=== PATIENT | female | born 1990 | race Caucasian/White ===

== ENCOUNTER 2024-01-27 14:06 | Outpatient (CLI) | payer MEDICAID, SELFPAY ==
--- OUTSIDE RECORDS SUMMARY | 2024-01-27 14:08 | XMS_ITS | Clinical Summary ---
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 Phone Pcp, No Primary Care Provider Unavailabl e Allergies No known active allergies Medications No known medications Active Problems No known active problems Immunizations Name Administration Dates Next Due Td (Age >=7 Years) 01/08/2009 Family History Medical History Relation Name Comments Hypertension Father Cancer Maternal Grandfather lung Cancer Maternal Grandmother unsure Relation Name Status Comments Father Maternal Grandfather Maternal Grandmother Social History Tobacco Use Types Packs/Day Years Used Date Smoking Tobacco: Never Smokeless Tobacco: Never Alcohol Use Standard Drinks/Week Comments Yes 0.8 (1 standard drink = 0.6 oz p ure alcohol) Sex and Gender Information Value Date Recorded Sex Assigned at Not on file Gender Identity Not on file Sexual Orientation Not on file Obstetrics History Last Filed Vital Signs Vital Sign Reading Time Taken Comments Blood Pressure 88/63 10/04/2023 11:32 AM CDT Pulse 98 10/04/2023 11:32 AM CDT Temperature 36.8 ??C (98.3 ??F) 03/02/2013 11:[address] Respiratory Rate 14 10/04/2023 11:32 AM CDT Oxygen Saturation 97% 10/04/2023 11:32 AM CDT Inhaled Oxygen Concentration - - Weight 60.3 kg (133 lb) 10/04/2023 11:32 AM CDT Height 165.1 cm (5' 5) 03/02/2013 11:29 AM RELIGION INSTRUCTOR Body Mass Index - - Plan of Treatment Health Maintenance Due Date Last Done Comments Tdap 01/24/1999 Depression screening for age 12+ 2000 HIV for age 15-65 01/24/2003 BMI (ht and wt on same day) for age 18+ 01/24/2006 Hepatitis C screening for age 18-79 01/24/2006 Tetanus booster 01/08/2019 01/08/2009 Pap test for age 21-65 05/14/2023 , 05/14/2020, 11/12/2016, Additional history exists COVID-19 vaccine series (2023- season) 2023 12/16/2020, 11/18/2020 Influenza for age 9-49 11/29/2023 Pneumococcal series for age 6-64 Aged Out No longer eligible based on patient's age to complete this topic Procedures Procedure Name Priority Date/Time Associated Diagnosis Comments [facility] THIN PREP PAP SCREEN IMAGED Routine 05/14/2020 11:15 AM RELIGION INSTRUCTOR from Last 3 Months or Most Recently Relevant to Health Maintenance Results * [facility] THIN PREP PAP SCREEN IMAGED (05/14/2020 11:15 AM RELIGION INSTRUCTOR) Case Report Gynecologic Cytology Report ? Case: [id number] ? Authorizing Provider: ??Kassidy Presley CNM ? Collected: ? 05/14/2020 1115 ? Ordering Location: ? [facility] ?Received: ?05/14/2020 1714 ? First Screen: ?Beverley Mann ? Specimen: ?[facility] ThinPrep Vial Screening, Cervical/Vaginal ? 05/22/2020 1:59 PM RELIGION INSTRUCTOR [facility] INTERPRETATION/ RESULT NEGATIVE FOR INTRAEPITHELIAL LESION OR MALIGNANCY (NIL) (none) 05/22/2020 1:59 PM RELIGION INSTRUCTOR [facility] IMEN ADEQUACY Satisfactory for evaluation Endocervical component present 05/22/2020 1:59 PM RELIGION INSTRUCTOR [facility] HPV REQUEST HPV and PAP 05/22/2020 1:59 PM RELIGION INSTRUCTOR [facility] Menstrual Status 05/22/2020 1:59 PM RELIGION INSTRUCTOR [facility] Additional Information 05/22/2020 1:59 PM RELIGION INSTRUCTOR [facility] Comment: Interpreted at [facility] [employer] [facility] - [address], [place] [address] Automated Review Successful 05/22/2020 1:59 PM RELIGION INSTRUCTOR [facility] Comment:Specimen processed s uccessfully by automated television tube inspector device, ThinPrep Imaging System, [employer] ANCILLARY TESTING [facility]OR [facility] HPV Ordered, Please see separate report 05/22/2020 1:59 PM RELIGION INSTRUCTOR [facility] Note The pap test is a screening technique, not a diagnostic procedure. It is used primarily to screen for squamous cancers and precursor lesions. Published studies have shown that it is subject to both false negative and false positive results. The pap test should not be used as the sole means to diagnose or exclude pre-malignant and malignant lesions. 05/22/2020 1:59 PM RELIGION INSTRUCTOR [facility] Other (Cervical/Vagina l) 05/14/2020 11:15 AM RELIGION INSTRUCTOR 05/14/2020 5:14 PM RELIGION INSTRUCTOR Kassidy Presley CNM PATHOLOGY/CYTOLOGY [facility] [address] [place] [address], [place] from Last 3 Months or Most Recently Relevant to Health Maintenance Care Teams Wood Processing Worker Relationship Specialty Start Date End Date Pcp, No . PCP - General 07/13/15
[2024-01-27 19:04] LABS: Chlamydia DNA Amplified* NOT DETECTED (No Detected); GC DNA Amplified* NOT DETECTED (No Detected)
== END 2024-01-27 14:07 | disposition home or self-care (01) ==
PROVIDERS: PCP Physician Assistant Medical; Visit Provider Registered Nurse
DX: Z34.91 Encounter for supervision of normal pregnancy, unspecified, first trimester (principal); Z3A.08 8 weeks gestation of pregnancy
CPT/HCPCS: 76817; 86592; 86703; 86704; 86706; 86762; 86787; 86803; 86850; 86900; 86901; 87086; 87340; 87491; 87591

== ENCOUNTER 2024-04-06 09:29 | Outpatient (CLI) | payer OTHER, SELFPAY | END 2024-04-06 09:30 | disposition home or self-care (01) | PROVIDERS: PCP Physician Assistant Medical; Visit Provider Registered Nurse | DX: O09.522 Supervision of elderly multigravida, second trimester (principal); Z87.51 Personal history of pre-term labor; Z3A.18 18 weeks gestation of pregnancy | CPT/HCPCS: 76811; 76817 ==

== ENCOUNTER 2024-04-20 10:45 | Outpatient (CLI) | payer OTHER, SELFPAY ==
--- NOTE | 2024-04-20 10:45 | CRLHL7_ITS ---
For Patients: As a result of the Century Cures Act, medical imaging exams and procedure reports are released immediately into your electronic medical record. You may view this report before your referring provider. If you have questions, please contact your health care provider. OBSTETRICAL ULTRASOUND ??? FOLLOW-UP INDICATION: History of labor, cervix check and low-lying placenta. KATIE by LMP: 09/07/2024 Gestational age: 20 weeks 0 days GESTATION: Single COMPARISON: 04/06/2024 TECHNIQUE: Realtime jean-baptiste-scale imaging of the fetus was performed transabdominal and transvaginal. FINDINGS: Cervix: Visualized, 3.3 cm positioning: Breech Amniotic fluid: 4.8 cm SDP Placenta technique: Transabdominal Placenta position: Anterior heart rate: 154 bpm COMMENTS: Cervix appears long and closed. Low-lying placenta appears to have resolved, 4.1 cm away from cervical os. IMPRESSION: 1. The cervix is closed and measures 3.3 cm with transvaginal technique. 2. Anterior placenta is located 4.1 cm away from the internal cervical os. No previa. JOHN NEGRON M.D. Diagnostic Radiologist [email or web address] Transcribed: 1:[address]/Dictated by: John Negron MD @ 04/20/2024 1:24:00 PM (Electronically Signed)
== END 2024-04-20 10:46 | disposition home or self-care (01) ==
LOC: US 10:45
PROVIDERS: PCP Physician Assistant Medical; Visit Provider Obstetrics & Gynecology
DX: Z34.92 Encounter for supervision of normal pregnancy, unspecified, second trimester (principal); Z87.51 Personal history of pre-term labor; Z3A.20 20 weeks gestation of pregnancy
CPT/HCPCS: 76816; 76817

== ENCOUNTER 2024-06-15 09:18 | Outpatient (CLI) | payer OTHER, SELFPAY ==
--- NOTE | 2024-06-15 09:30 | CRLHL7_ITS ---
For Patients: As a result of the Century Cures Act, medical imaging exams and procedure reports are released immediately into your electronic medical record. You may view this report before your referring provider. If you have questions, please contact your health care provider. OB ULTRASOUND KATIE by LMP/US: 09/07/2024. GA: 28 w, 0 d. Single. Comparison: 05/04/2024, 04/20/2024, 04/06/2024. INDICATION: Ulcerative colitis, growth. TECHNIQUE: Real time grayscale imaging of the fetus was performed. Transabdominal. CERVIX: Not visualized. POSITIONING: Vertex. AMNIOTIC FLUID: 6.2 cm. SDP (N: greater than 2 x 1 cm) PLACENTA: Technique: Transabdominal. PLACENTA POSITION: Posterior, right wall. DOPPLER: heart rate: 149 bpm. BIOMETRY: BPD: 7.3 cm. 29 w, 1 d, 75 percent. HC: 26.6 cm. 29 w, 0 d, 49 percent. AC: 25.5 cm. 29 w, 5 d, 88 percent. FL: 5.4 cm. 28 w, 3 d, 47 percent. FL/AC ratio: 21.02 percent. HC/AC ratio: 1.04. EFW: 1346 g. Weight: 2 lbs, 15 oz. age by this US: 29 w, 1 d. KATIE by this US: 08/30/2024. Percentile by KATIE: 81 percent. IMPRESSION: 1. Sonographic gestational age 29 weeks 1 day and sonographic due date 08/30/2024. Sonographic age is 8 days ahead of the clinical age. 2. Estimated weight 81st percentile. Abdominal circumference 88th percentile. John Hanson M.D. Diagnostic Radiologist [email or web address] mercado/Dictated by: John Hanson MD @ 06/15/2024 11:00:00 AM (Electronically Signed)
== END 2024-06-15 09:19 | disposition home or self-care (01) ==
LOC: US 09:18
PROVIDERS: PCP Physician Assistant Medical; Visit Provider Obstetrics & Gynecology
DX: O26.893 Other specified pregnancy related conditions, third trimester (principal); K51.90 Ulcerative colitis, unspecified, without complications; Z3A.28 28 weeks gestation of pregnancy
CPT/HCPCS: 76816

== ENCOUNTER 2024-06-15 09:18 | Outpatient (CLI) | payer OTHER, SELFPAY | END 2024-06-15 09:19 | disposition home or self-care (01) | LOC: NFLDREF 06-17 04:53 | PROVIDERS: PCP Physician Assistant Medical; Referring Provider Physician Assistant Medical; Visit Provider Obstetrics & Gynecology | DX: Z34.93 Encounter for supervision of normal pregnancy, unspecified, third trimester (principal); Z3A.28 28 weeks gestation of pregnancy | CPT/HCPCS: 86592 ==

== ENCOUNTER 2024-06-29 09:16 | Outpatient (CLI) | payer OTHER, SELFPAY | END 2024-06-29 09:17 | disposition home or self-care (01) | PROVIDERS: PCP Physician Assistant Medical; Visit Provider Obstetrics & Gynecology | DX: R55 Syncope and collapse (principal) | CPT/HCPCS: 80048; 84443 ==

== ENCOUNTER 2024-07-27 09:00 | Outpatient (CLI) | payer OTHER, SELFPAY ==
--- NOTE | 2024-07-27 09:15 | CRLHL7_ITS ---
For Patients: As a result of the Century Cures Act, medical imaging exams and procedure reports are released immediately into your electronic medical record. You may view this report before your referring provider. If you have questions, please contact your health care provider. OB ULTRASOUND FOLLOW-UP GROWTH, 07/27/2024 CLINICAL HISTORY: Ulcerative colitis. COMPARISON: 06/15/2024, 05/04/2024. TECHNIQUE: Real time jean-baptiste scale imaging of the fetus was performed transabdominally. FINDINGS: KATIE by LMP: 09/04/2024. GA: 34 weeks 3 days. Gestation: Single. Cervix: Not visualized. Positioning: Vertex. Amniotic Fluid: 5.7 cm SDP. Placenta: Technique: TA. Placenta Position: Posterior. Dopplers: Heart Rate: 163 bpm. BIOMETRY: BPD: 8.4 cm, 34 weeks 0 days. 35% HC: 31.4 cm, 35 weeks 1 day. 32% AC: 32.5 cm, 36 weeks 3 days. 95% FL: 6.7 cm, 34 weeks 4 days. 43% EFW: 2698 grams, 5 lb 15 oz. Age by this US: 35 weeks 0 days. KATIE by this US: 08/31/2024. Percentile by KATIE: 77% IMPRESSION: 1. Sonographic gestational age 35 weeks 0 days and sonographic due date 08/31/2024. Good correlation with dates. Normal interval growth. 2. Estimated weight 77th percentile. Abdominal circumference 95th percentile. John Hanson M.D. Diagnostic Radiologist [email or web address] Transcribed: 2:36 pm DW/Dictated by: John Hanson MD @ 07/27/2024 2:26:00 PM (Electronically Signed)
== END 2024-07-27 09:01 | disposition home or self-care (01) ==
LOC: US 09:00
PROVIDERS: PCP Physician Assistant Medical; Visit Provider Obstetrics & Gynecology
DX: O26.893 Other specified pregnancy related conditions, third trimester (principal); K51.90 Ulcerative colitis, unspecified, without complications; Z3A.34 34 weeks gestation of pregnancy
CPT/HCPCS: 76816

== ENCOUNTER 2024-08-10 09:13 | Outpatient (CLI) | payer OTHER, SELFPAY ==
[2024-08-11 11:35] LABS: Strep B DNA Probe Negative (Negative)
[2024-08-11 11:41] LABS: Strep B Susceptibility Needed? No
== END 2024-08-10 09:14 | disposition home or self-care (01) ==
LOC: NFLDREF 09:14
PROVIDERS: PCP Physician Assistant Medical; Visit Provider Obstetrics & Gynecology
DX: Z34.83 Encounter for supervision of other normal pregnancy, third trimester (principal)
CPT/HCPCS: 87081; 87653

== ENCOUNTER 2024-08-29 07:16 | Inpatient (IN) | payer OTHER, SELFPAY ==
[2024-08-29] VITALS (64 sets, daily range): BP systolic 106–151; BP diastolic 55–121; PULSE 51–118; RESP 12–18; TEMP 36.5–37; O2SAT 96–100; BMI 27.3
--- NOTE | 2024-08-29 07:59 | P.LDBA_ITS ---
Subjective History of Present Illness Time Seen by Provider: 07:55 Date Seen: 08/29/24 Narrative: Patient is being admitted to Labor and Delivery for induction of labor. She is a 34 year old at 39 1/7 weeks gestation. Her full history and physical was dictated by Sneha Silva CNM on 08/17/2024. Please see this for details. She feels well this morning. She denies contractions, unusual vaginal discharge, vaginal bleeding or leakage of fluid. Specific Issues/Plans G 2 P 0101 (KATIE by US per MFM) :Pb H&P done by Eder Silva CNM on 08/17/24 #Advanced maternal age * NIPT: Low risk, boy! * Level 2 ultrasound see below * Growth ultrasound at 28 weeks and 34 weeks # History of delivery. PPROM at 34 weeks 2 days. Induced at 34 weeks. Patient will consult with perinatology at time of level 2 ultrasound # Ulcerative colitis. Has not seen Gastroenterology since her last . Currently stable. Open to a referral to GI. * Will place a referral to Gastroenterology. She prefers to not go to [place]. [facility] 02/10/24: defer colonoscopy d/t ; checking CBC, CMP, CRP, fecal calprotectin; avoid stress and foods that trigger diarrhea; f/u w/ [facility] in 4 months. * Recommend daily low-dose aspirin at 12 weeks * Avoid NSAIDs post delivery, delivery in 39th week recommended #Presyncopal symptoms at 30 weeks visit - Deferred Tdap due to feeling unwell - Normal CBC, BMP, TSH on 06/29, unremarkable EKG [x] Zio patch x3 days - normal sinus vs supraventricular ectopy noted during events. Nothing further required. Imaging * 1st OB US: 3.3 x 1.0 x 2.9 cm [place] in the left uterus.2.0 x 1.8 x 2.4 cm complex area in the lower uterine segment may represent a uterine fibroid or other mass. Recommend continued attention on follow-up. * FU US: 1.6 x 1.2 x 1.2 centimeter left ovarian presumed hemorrhagic cyst. Consider follow-up ultrasound in 6-12 weeks.Patient to call w/ any bleeding * Level 2 ultrasound: 04/06/2024 no anomalies, EFW 90%, AC 89%, MVP 3.65 cm, posterior right lateral and low lying placenta 14.6 mm from internal cervical os. Recommend transvaginal assessment of cervical length every 2 weeks until 22-23 weeks, increasing to weekly if cervical length between 25-29 mm and recommend that these be scheduled at [facility] or [facility]. If cervical length within normal limits at 22-23 weeks, can then plan to discontinue cervical length screening at that time. If cervical length < 25 mm at < 24 weeks, recommend either vaginal progesterone vs cerclage for recurrent PTB risk reduction. * 04/20/24: The cervix is closed and measures 3.3 cm with transvaginal technique. .Anterior placenta is located 4.1 cm away from the internal cervical os. No previa. * [facility] follow-up on 05/04/2024: Single deepest pocket of amniotic fluid: 5.9 cm, cephalic, AC: 74th percentile, EFW 61 percentile. Single dual at 22 weeks 3 days. Normal anatomy. Normal growth. Transvaginal imaging of the cervix appear long and closed measuring 41 mm. dating: We discussed that based on short menstrual cycle lengths of 24 days, recommend using a KATIE of 09/04/2024, which is based on early ultrasound. Using this stating, growth parameters are normal. Recommendations/plan: Recommend using a KATIE 09/04/2024. Growth ultrasound at 28 and 34 weeks given ulcerative colitis, which we pursue will be done with [facility]. Delivery at 39 weeks given ulcerative colitis. * 06/15/2024: Vertex, SDP: 6.2cm, EFW: 81%, AC: 88%. Normal growth. * 07/27: EFW is 2698g at the 77%ile, AC 95%ile, cephalic, MVP of 5.7cm. Flu: 01/27/2024 Covid: Recommended booster. Patient declines. Tdap: 07/13/24 RSV: NA 32 week mental health: 07/13/24 Last pap: [Only high-risk abnormal pap results in problem list] OB - Problem Based A/P Additional Plan (1) Advanced maternal age (AMA) in : Status: Acute (2) Ulcerative colitis: Status: Chronic Delivery/Labor/Induction Plan Plan: induction Induction method: per pitocin protocol OB Result Labs Blood Type: O (+) positive Rubella: immune RPR/VDLR: nonreactive GBS Status: negative HBsAG: negative OB Exam Physical Exam Vital signs: Temp Pulse Resp BP Pulse Ox 97.7 F 80 12 126/64 96 08/29/24 07:37 08/29/24 07:37 08/29/24 07:37 08/29/24 07:37 08/29/24 07:34 Detailed Labor and Delivery Exam Patient Gravid: yes Dilation (cm): 2 Effacement (%): 70 Cervix position: mid Consistency: soft Cervical ripeness score: 7 Contraction Frequency: 0 Tachysystole: No Fetus (Single) Station: -2 Heart Rate Baseline: 145 Monitor Accelerations: Absent Monitor Decelerations: None Alf Variability: Moderate (6-25)
[2024-08-29 08:01] LABS: Basophils Absolute Auto 0.03 K/uL (0.00-0.30); Basophils Percent Auto 0.3 % (0.0-3.0); Hematocrit 36.8 % (33.0-51.0); Hemoglobin* 12.3 gm/dL (12.0-16.0); Immature Granulocytes Abs Auto 0.03 K/uL (0.00-0.30); Immature Granulocytes Pct Auto 0.3 %; Lymphocytes Percent Auto 19.5 % (20-44); Mean Corpuscular HGB Conc 33 gm/dL (32-36); Mean Corpuscular Hemoglobin 30 pg (26-34); Mean Corpuscular Volume 89 fL (80-100); Monocytes Percent Auto 6.3 % (0.0-11.0); Neutrophils Percent Auto 72.6 % (42.0-72.0); Platelet Count* 187 K/uL (140-440); Red Blood Count 4.15 m/uL (4.00-5.20); White Blood Count* 10.43 K/uL (4.50-11.00)
[2024-08-29 08:02] LABS: Slide Review Reflex No
[2024-08-29] MEDS: LACTATED RINGERS 1000 ML 1,000 ML 125 ML IV (08:36)
[2024-08-29] MEDS: OXYTOCIN 30 unit/500 ML in NS 30 UNIT/500 ML BAG IVPB (08:37)
--- NOTE | 2024-08-29 13:37 | P.OBPN_ITS ---
Subjective Time Seen by Provider: 13:30 Date Seen: 08/29/24 Narrative: The patient feels well. Contractions are frequent but not painful. Objective Vital Signs: Last Vital Signs Temp 98.2 F 08/29/24 13:12 Pulse 78 08/29/24 13:12 Resp 16 08/29/24 13:12 BP 135/74 08/29/24 13:12 Pulse Ox 96 08/29/24 13:12 Pelvic Exam Dilation (cm): 4 Effacement (%): 80 Station: -2 Contractions Monitor mode: External Contraction Frequency: q2-3 min Contraction pattern: Regular Contraction intensity: Mild Pitocin Rate (mU/min): 2 Assessment Assessment: induction ongoing Station: -2 Amniotic Membrane Status: AROM (clear fluid noted) Heart Rate Baseline: 145 Care Home Variability: Moderate (6-25) Monitor Accelerations: Present Monitor Decelerations: None Plan Plan: AROM performed. Titrate pitocin as needed Epidural prn. Anticipate vaginal delivery.
[2024-08-29] MEDS: LACTATED RINGERS 1000 ML 1,000 ML 1125 ML IV (15:50)
[2024-08-29] MEDS: ROPIVACAINE 0.2% 100 ml 100 ML 12 MG EPIDURAL (16:42)
[2024-08-29] MEDS: BUPIVACAINE 0.25% PF 10 ML 10 ML ML EPIDURAL (16:42)
--- NOTE | 2024-08-29 16:51 | P.ANBPRC_ITS ---
PFSH PFS Surgical History History of vaginal delivery (11/10/20) Family History Brother Crohn's disease Mother Breast cancer, Onset Age: 52 Father Diabetes High blood pressure Maternal Grandfather Lung cancer Maternal Grandmother Lung cancer Grandmother Heart disease Grandfather Heart disease Social History What is your current living situation?: I presently have a place to live Problems where you live: no known problems In the past 12 months, utilities in danger of being shut off: no In past 12 months, lack of transportation kept you from medical appts, meetings, work, or getting things needed for daily living: no In the past 12 mos, have been you worried that your food would run out before you had money to buy more?: never true In the past 12 mos, the food you bought just didn't last and you didn't have money to buy more?: never true Smoking Status: Never smoker How often does anyone, including family, friends and others, physically hurt you : never How often does anyone, including family, friends and others, insult or talk down to you: never How often does anyone, including family, friends and others, threaten you with harm: never How often does anyone, including family, friends and others, scream or curse at you: never Meds Home Medications and Allergies Home Medications ?Medication ?Instructions ?Recorded ?Confirmed ?Type cholecalciferol (vitamin D3) 10 10 mcg PO QDAY 4 08/29/24 History mcg (400 unit) capsule docosahexaenoic acid 200 mg 200 mg PO DAILY 01/27/24 0 08/29/24 History capsule ( DHA) Allergies Allergy/AdvReac Type Severity Reaction Status Date / Time No Known Drug Allergies Allergy Verified 08/29/24 07:56 Results Labs Labs: Laboratory Results - last 24 hr 08/29/24 07:50 WBC 10.43 RBC 4.15 Hgb 12.3 Hct 36.8 MCV 89 MCH 30 MCHC 33 RDW Coeff of Darling 13.0 Plt Count 187 Neut % (Auto) 72.6 H Lymph % (Auto) 19.5 L [place] % (Auto) 6.3 Eos % (Auto) 1.0 Baso % (Auto) 0.3 Neut # (Auto) 7.60 H Lymph # (Auto) 2.00 [place] # (Auto) 0.70 Eos # (Auto) 0.10 Baso # (Auto) 0.03 Abs Immat Gran (auto) 0.03 Imm/Tot Granulo (auto) 0.3 Blood Type O Positive Antibody Screen NEGATIVE Vital Signs Vital Signs: Last Vital Signs Temp 97.7 F 08/29/24 15:28 Pulse 77 08/29/24 16:48 Resp 16 08/29/24 15:28 BP 133/59 L 08/29/24 16:48 Pulse Ox 100 08/29/24 16:50 Weight: 74.707 kg Height: 165.1 cm Anesthesia Procedures Epidural Insertion Patient Location: OB Start Time: 16:00 Stop Time: 16:50 Start Date: 08/29/24 Stop Date: 08/29/24 Reason for Block: procedure for pain Patient Position: sitting Performed By: Glenn Obrien Preanesthetic Checklist: IV checked, risks and benefits discussed, surgical consent, monitors and equipment checked, pre-op evaluation, timeout performed and anesthesia consent Prep: chlorhexidine gluconate Monitoring: blood pressure monitoring, continuous pulse oximetry and heart rate Approach: midline Vertebral Space: lumbar (1-5) Epidural Technique: YUSUF saline Needle Type: Tuohy needle Injection Technique: continuous catheter Needle gauge: 17 Needle Length (cm): 10 cm Needle Insertion Depth (cm): 6 Catheter Gauge: 19 Catheter Type: multi-orifice Catheter at skin depth (cm): 12 Test Dose Result: negative and lidocaine 1.5% with epinephrine 1 to 200,000
[2024-08-29 17:55] LABS: Hematocrit 39.5 % (33.0-51.0); Hemoglobin* 13.1 gm/dL (12.0-16.0); Mean Corpuscular HGB Conc 33 gm/dL (32-36); Mean Corpuscular Hemoglobin 30 pg (26-34); Mean Corpuscular Volume 89 fL (80-100); Platelet Count* 196 K/uL (140-440); Red Blood Count 4.43 m/uL (4.00-5.20); White Blood Count* 17.03 K/uL (4.50-11.00)
[2024-08-29 17:56] LABS: Slide Review Reflex No
[2024-08-29 18:10] LABS: Alanine Aminotransferase* 17 U/L (4-35); Aspartate Amino Transferase* 32 U/L (12-35); Blood Urea Nitrogen* 15 mg/dL (5-24); Creatinine* 0.8 mg/dL (0.5-1.5); Est. Creatinine Clearance* 87.48; Estimated Glomerular Filt Rate 98 ml/min
[2024-08-29] MEDS: OXYTOCIN 30 unit/500 ML in NS 30 UNIT/500 ML BAG 303 UNIT IVPB (18:23)
[2024-08-29 18:32] LABS: Creatinine Urine < 3.2 mg/dL
[2024-08-29 18:38] LABS: Total Protein Urine 290 mg/dL
--- NOTE | 2024-08-29 18:53 | W.PM.OBVAGDE ---
OB Procedure Vag Delivery Mother Details Mother Details: The patient is a 34 year-old, 2, Para 1, admitted on 08/29/24 at 39.1 weeks gestation for induction of labor. : 2 Para: 1 Weeks Gestation: 39.1 Admission Date: 08/29/24 Additional Details Amniotic Membrane Status: intact Amniotic Membrane Rupture Date: 08/29/24 Amniotic Membrane Rupture Time: 13:33 Amniotic Membrane Fluid Description: Clear Analgesia/Anesthesia Type: Epidural Waterbirth: No Pitcoin: Yes Intrapartal Events: Labor Induction Induction Method: per pitocin protocol Delivery augmentation: rupture of membranes Labor Onset: 17:05 Complete: 18:09 Pushin:10 Heart: heart tones during second stage were 145 bpm with good variability and variable decelerations to 90s, category 2. Delivery Details Delivery Date: 08/29/24 Delivery Time: 18:21 Route of delivery: Gender: Male Infant Viability: Alive; Heart Rate Present Position at Delivery: OA (with nuchal cord x1, reduced over the head prior to delivery of the shoulders.) Delivery Details: Delivered via spontaneous vaginal delivery. was placed on maternal abdomen.? Cord was clamped and cut after a 30-60 second delay. Nose and mouth were bulb suctioned.? Infant weight pending. Brisk uterine bleeding noted with delivery of placenta, as well as brisk bleeding from a lacerated perineal vessel. Additional Details Shoulder Dystocia: No Placenta Delivery Time: 18:25 Placental Delivery Description: Spontaneous Delivery repair: Chromic (2-0 vicryl for perineal vessel ligation and reapproximation of the deeper tissues, 3-0 chromic for the 2nd degree layered repair) Procedure Done: Global Blood Loss: 1,000 Laceration: Perineal - 2nd Degree Episiotomy Description: None Blood Loss Measurement Type: QBL Bakri Used: No Sponge/Need Count Correct: Yes Cord Vessel Description: 3 Vessels Event Summary Status: Mother and were stable after delivery. Disposition: floor
--- NOTE | 2024-08-29 23:35 | PM.ANPOST ---
Post Anesthesia Note Post Anesthesia Note Patient seen: Inpatient Respiratory Status: adequate Cardiovascular Status: adequate Mental Status: baseline Pain: adequate Temp: baseline Anesthetic awareness: N/A Complications: none Follow care: none
[2024-08-30] VITALS (7 sets, daily range): BP systolic 98–130; BP diastolic 66–81; PULSE 77–102; RESP 16–18; TEMP 36.6–36.8; O2SAT 97–98
[2024-08-30] MEDS: IBUPROFEN 600 MG TABLET PO (01:12)
[2024-08-30 06:20] LABS: Hemoglobin* 10.9 gm/dL (12.0-16.0)
--- NOTE | 2024-08-30 08:03 | P.OBPN_ITS ---
OB - PN:Subj Subjective Date Seen: 08/30/24 Narrative: Britney is a 34 y.o. G 2 P 1 who was admitted to [facility] for IOL for ulcerative colitis. ?She had a NVD that was complicated by PPH likely secondary to laceration. The patient feels well. ?The pain is well controlled with current medications. ?She has no new complaints. ?She is breast feeding and reports things are going well. the patient has done well.? Vitals have been stable.? She has remained afebrile.? Has a good appetite, is tolerating a general diet. ?She is voiding without difficulty.? She is passing gas and has had a few small bowel movements.? She is ambulating and denies any dizziness.? Has small amount of rubra lochia. She is encouraged to d/c home tomorrow due to GHTN diagnosis. Problems: GHTN diagnosed based on elevated BP >4 hours apart. Labs WNL. Of note, p/c ratio is inaccurate as it was contaminated with blood. OB - PN: Obj Exam Physical Exam: Vital signs: Temp Pulse Resp BP Pulse Ox O2 Del Method 98.6 F 77 16 130/79 98 Room Air 08/29/24 20:25 08/30/24 04:33 08/30/24 04:33 08/30/24 04:33 08/30/24 04:33 08/30/24 04:33 Narrative: GENERAL APPEARANCE:? normal affect, alert, no distress MOOD:? appropriate CHEST:? clear to auscultation HEART:? regular rate and rhythm ABDOMEN:? soft, non-tender the uterine fundus is 2 below Umbilicus, Midline and is appropriate for the stage of recovery. PERINEUM:? mild edema of the perineum, there is a Perineal Laceration,?2nd degree, that is healing well. EXTREMITIES:? normal and no edema OB - PN: Obj Data Labs Labs: Laboratory Results - last 24 hr 08/29/24 08/29/24 08/29/24 07:50 17:45 Unknown WBC 10.43 17.03 H RBC 4.15 4.43 Hgb 12.3 13.1 Hct 36.8 39.5 MCV 89 89 MCH 30 30 MCHC 33 33 RDW Coeff of Darling 13.0 Plt Count 187 196 Neut % (Auto) 72.6 H Lymph % (Auto) 19.5 L [place] % (Auto) 6.3 Eos % (Auto) 1.0 Baso % (Auto) 0.3 Neut # (Auto) 7.60 H Lymph # (Auto) 2.00 [place] # (Auto) 0.70 Eos # (Auto) 0.10 Baso # (Auto) 0.03 Abs Immat Gran (auto) 0.03 Imm/Tot Granulo (auto) 0.3 BUN 15 Creatinine 0.8 Estimated Creat Clear 87.48 Estimated GFR 98 AST 32 ALT 17 Urine Creatinine < 3.2 Protein/Creatinin Ratio 90.00 H Urine Total Protein 290 Blood Type O Positive Antibody Screen NEGATIVE 08/30/24 06:04 WBC RBC Hgb 10.9 L Hct MCV MCH MCHC RDW Coeff of Darling Plt Count Neut % (Auto) Lymph % (Auto) [place] % (Auto) Eos % (Auto) Baso % (Auto) Neut # (Auto) Lymph # (Auto) [place] # (Auto) Eos # (Auto) Baso # (Auto) Abs Immat Gran (auto) Imm/Tot Granulo (auto) BUN Creatinine Estimated Creat Clear Estimated GFR AST ALT Urine Creatinine Protein/Creatinin Ratio Urine Total Protein Blood Type Antibody Screen OB - PN: A/P Delivery Assessment and Plan (1) care and examination immediately after delivery: Status: Acute (2) Gestational hypertension: Status: Acute (3) Lactating mother: Status: Acute Plan day: 1 Plan: routine care Comments: , may see if needed? Hgb 10.9. ? GHTN diagnosed by elevated BP greater than 4 hours apart? Labs WNL Continue to monitor BP per protocol while inpatient. Anticipate discharge home tomorrow.?
[2024-08-30] MEDS: ACETAMINOPHEN 500 MG TABLET 1000 MG PO (12:12)
[2024-08-30] MEDS: DOCUSATE SODIUM 100 MG CAPSULE PO (12:13)
[2024-08-31 04:11] VITALS: BP 114/69; PULSE 79; RESP 16; TEMP 36.6; O2SAT 97
--- NOTE | 2024-08-31 07:41 | P.DS_ITS ---
DS: Providers Provider Date Seen: 08/31/24 Date of admission: 08/29/24 07:16 Primary care physician: Eduarda Roberts PA-C Admitting Clinician: Kristan Walton MD Attending Physician on discharge: Raisa ARGUETA Date of Discharge: 08/31/24 DS: Diagnosis Discharge Diagnosis (1) care and examination immediately after delivery: Status: Acute (2) Lactating mother: Status: Acute (3) Gestational hypertension: Status: Acute (4) hemorrhage: Status: Acute Problem details: 1000cc QBL from laceration mainly Exam Narrative: Exam Narrative: GENERAL APPEARANCE:? normal affect, alert, no distress MOOD:? appropriate CHEST:? clear to auscultation HEART:? regular rate and rhythm ABDOMEN:? soft, non-tender the uterine fundus is 2 fingers below Umbilicus, Midline and is appropriate for the stage of recovery. PERINEUM:? mild edema of the perineum, there is a Perineal Laceration,? with minimal edema, well approximated with no erythema EXTREMITIES:? normal and minimal edema Const: Vital Signs, click to edit/add: Vital Signs - 24 hr 08/30/24 08:18 08/30/24 12:04 08/30/24 17:03 Temperature 98.3 F 98.3 F 97.9 F Pulse Rate [Pulse Oximeter] 102 H 99 81 Respiratory Rate 18 18 16 Blood Pressure [Ri ght Arm] 98/66 114/75 129/76 Pulse Oximetry 97 97 97 Oxygen Delivery Me thod Room Air Room Air Room Air 08/30/24 20:05 08/30/24 23:29 08/31/24 04:11 Temperature 98.2 F 98.1 F 97.9 F Pulse Rate [Pulse Oximeter] 94 88 79 Respiratory Rate 16 16 16 Blood Pressure [Ri ght Arm] 121/81 124/75 114/69 Pulse Oximetry 97 98 97 Oxygen Delivery Me thod Room Air Room Air Room Air OB - DS: Summary Hospital Course Hospital Course: Britney is a 34 y.o. who was admitted to [facility] for IOL at 39w1/7.? She had a NVD that was complicated by GHTN, and hemorrhage of 1000cc from laceration. The patient feels well.? The pain is well controlled with current medications.? She has no new complaints.? She is breast feeding and reports things are going well. the patient has done well.? Vitals have been stable.? She has remained afebrile.? Has a good appetite, is tolerating a g eneral diet.? She is voiding without difficulty.? She is passing gas and has had a bowel movement.? She is ambulating and denies any dizziness.? Has scant amount of rubra lochia. She is planning POP for prevention.? ?? Problems: none? ?? plan:? Discharge home with baby.? Follow up in 2 weeks and 6 weeks.? , may see if needed? Hgb 10.9. ? GHTN diagnosed by elevated BP greater than 4 hours apart? Labs WNL or stable with trending? Discharge home with BP cuff if does not already have one? Follow up in 5 days? Call for signs/symptoms of preeclampsia? Peripartum Data delivery method: Vaginal Laceration description: Perineal - 2nd Degree Episiotomy description: None complications: none Gender: Male Infant Discharge Plan: Home Status at Discharge Overall status at discharge: patient is progressing back to baseline Time Spent with Patient Time attestation: Total time spent providing and/or coordinating discharge services: Time spent: Less than 30 minutes Discharge Plan Discharge Disposition: Home, Self-Care Date of Admission: 08/29/24 07:16 Attending Provider on Discharge: Laura Deal Primary Care Provider: Eduarda Roberts Condition: Stable Anticipated Discharge Date/Time: 08/31/24 12:00 Discharge Medications: Continued DHA 200 mg capsule 200 mg PO DAILY cholecalciferol (vitamin D3) 10 mcg (400 unit) capsule 10 mcg PO QDAY Discharge Orders: Discharge Order (Routine); Ordered 08/31/24 Ordered By: Laura Deal Patient Education: OB High Blood Pressure DC, OB Over the Counter Medication Information, OB Vaginal/Breast Feeding Additional Instructions: Discharge instructions were reviewed with the patient including signs and symptoms of infection and home going medications Nothing vaginally for 6 weeks: no tampons or intercourse Do not drive while taking narcotic pain medication(s) Off Work or School for 6 weeks Symptoms to report to doctor: * Bleeding that saturates more than one pad per hour * Passing clots larger than the size of a golf ball * Pain not relieved by prescribed medication * Fever above 100.4 degrees Fahrenheit * A foul vaginal odor * Difficulty in emotions, mood, and functions * Thoughts of hurting yourself and/or * Painful, reddened area in your breast * Any drainage, redness, or tenderness in your IV/epidural site * Severe headache that doesn't improve after taking medications * Changes in vision, including temporary loss of vision, blurred vision, and/or light sensitivity * Upper abdominal pain (usually under ribs on the right side) * Decrease in urination or painful, frequent urinating * Chest pain * Shortness of breath * Tenderness or pain with redness and/swelling in the calf(s) of your leg [facility] for [facility] BP check?09/05/2024 Call with BP greater than or equal to 140/90 2-week visit: discuss feeding concerns, review control options and screen for anxiety/depression. 6-week visit for an annual exam. consultation services are available to all mothers and babies for the first year after delivery.? To make an appointment, please call [phone]. Activity Level: Activity as Tolerated and No strenuous activity Discharge Diet: Regular Follow Up Appointments: [facility] [Provider Group] Forms: [employer] Info Instructions
[2024-08-31 08:16] VITALS: BP 103/67; PULSE 112; RESP 16; TEMP 36.6; O2SAT 98
[2024-08-31] MEDS: DOCUSATE SODIUM 100 MG CAPSULE PO (09:38)
[2024-08-31 11:00] VITALS: PULSE 81
== END 2024-08-31 11:33 | disposition home or self-care (01) | DRG 806 ==
PROVIDERS: Admitting Provider Obstetrics & Gynecology; PCP Physician Assistant Medical; Visit Provider Obstetrics & Gynecology
DX: O70.1 Second degree perineal laceration during delivery (principal); K51.90 Ulcerative colitis, unspecified, without complications; Z37.0 Single live birth; O72.1 Other immediate postpartum hemorrhage; Z3A.39 39 weeks gestation of pregnancy; O76 Abnormality in fetal heart rate and rhythm complicating labor and delivery; O13.5 Gestational [pregnancy-induced] hypertension without significant proteinuria, complicating the puerperium; Z87.51 Personal history of pre-term labor
CPT/HCPCS: 01967; 36415; 82565; 82570; 84156; 84450; 84460; 84520; 85018; 85025; 85027; 86592; 86850; 86900; 86901; A9270; J0665; J2795; J7120

== ENCOUNTER 2024-10-12 10:07 | Outpatient (CLI) | payer OTHER, SELFPAY ==
[2024-10-13 19:28] LABS: HPV Source Cervix
== END 2024-10-12 10:08 | disposition home or self-care (01) ==
PROVIDERS: Visit Provider Registered Nurse
DX: R39.15 Urgency of urination (principal); Z12.4 Encounter for screening for malignant neoplasm of cervix; Z11.51 Encounter for screening for human papillomavirus (HPV)
CPT/HCPCS: 87086; 87624; 87625; 88141; 88142

== ENCOUNTER 2024-10-31 09:51 | Outpatient (RCR) | payer OTHER, SELFPAY | END 2025-02-28 23:59 | disposition home or self-care (01) | PROVIDERS: Visit Provider Registered Nurse | DX: N81.89 Other female genital prolapse (principal); R39.15 Urgency of urination; Z51.89 Encounter for other specified aftercare | CPT/HCPCS: 97140; 97162 ==